=== PATIENT | female | born 1960 | race Two or more races ===

== ENCOUNTER 2021-09-25 10:16 | Inpatient (IN) | payer MEDICAID, OTHER ==
[~2021-09-25] VITALS: Ht 162.6 cm; Wt 83.1 kg
[2021-09-25] MEDS ORDERED: SODIUM CHLORIDE 0.9% 1,000 ML IV ONE (15:30)
[2021-09-25] MEDS ORDERED: SODIUM CHLORIDE 0.9% 1,000 ML IVB ONE (15:30)
[2021-09-25] MEDS ORDERED: ASPirin 81 mg TAB PO ONE (15:30)
[2021-09-25 16:33] LABS: Basophils # (auto) 0 10 ^3/uL (0-0.2); Basophils % (auto) 0.3 % (0.0-2.0); Eosinophils # (auto) 0 10 ^3/uL (0-0.8); Hematocrit 45.3 % (36.0-46.0); Hemoglobin 15.3 g/dL (12.2-16.2); Lymphocytes # (auto) 0.8 10 ^3/uL (0.4-5.4); Lymphocytes % (auto) 16.6 % (10.0-50.0); Mean Corpuscular Hemoglobin 28.5 pg (28.0-32.0); Mean Corpuscular Hgb Conc. 33.7 g/dL (32.0-36.0); Mean Corpuscular Volume 84.5 fL (80.0-100.0); Monocytes # (auto) 0.3 10 ^3/uL (0-1.3); Monocytes % (auto) 6.3 % (0.0-12.0); Neutrophils # (auto) 3.5 10 ^3/uL (1.6-8.6); Neutrophils % (auto) 76.8 % (37.0-80.0); Nucleated Red Blood Cells % 0.4 %; Red Blood Cells 5.36 10^6/uL (4.0-5.20); Red Cell Distribution Width 14.3 % (11.8-14.3); White Blood Cell 4.5 10^3/uL (4.4-10.8)
[2021-09-25 16:50] LABS: Albumin 3.4 g/dL (3.4-5.0); Calcium 8.9 mg/dL (8.5-10.1); Magnesium 3.2 mg/dL (1.6-2.6); Potassium 3.6 mmol/L (3.5-5.1)
[2021-09-25 16:56] LABS: BUN/Creatinine Ratio 17.5; Bilirubin, Total 0.9 mg/dL (0.2-1.0); Total Protein 8.4 g/dL (6.4-8.2)
[2021-09-25 17:30] LABS: INR 0.97 (0.9-1.15); Partial Thromboplastin Time 28.9 sec (23.6-33.0)
[2021-09-25] MEDS ORDERED: FUROSEMIDE 40 MG/4 ML VIAL IV ONE (17:45)
[2021-09-25] MEDS ORDERED: SPIRONOLACTONE 25 MG TAB PO ONE (17:45)
[2021-09-25] MEDS ORDERED: IOHEXOL 350 MG/ML 100ML IJ ONE (18:01)
[2021-09-25] MEDS ORDERED: AZITHROMYCIN 500MG/ 250ML 250 ML IV ONE (18:45)
[2021-09-25] MEDS ORDERED: ASCORBIC ACID 500 MG TAB PO ONE (18:45)
[2021-09-25] MEDS ORDERED: CHOLECALCIFEROL (VITD3) 2,000 UNIT CAP/TAB PO ONE (18:45)
[2021-09-25] MEDS ORDERED: ZINC SULFATE 220mg CAP or TAB PO ONE (18:45)
[2021-09-25] MEDS ORDERED: DexAMETHasone SOD PHOS 10MG/1ML VIAL INJ IV ONE (18:45)
[2021-09-25] MEDS ORDERED: cefTRIAXone 1GM/50ML D5W 50 ML IV ONE (18:45)
[2021-09-26] MEDS ORDERED: NITROGLYCERIN 0.4 MG SL TAB SL PRN (01:00)
[2021-09-26] MEDS ORDERED: ONDANSETRON HCL 4 MG/2 ML VIAL IV PRN (01:00)
[2021-09-26] MEDS ORDERED: MORPHINE SULFATE INJECTION 2 MG/ML SYRG IV PRN (01:00)
[2021-09-26] MEDS: ALBUTEROL SULF HFA 90MCG INH 200DOSE IN SCH ×3 (06:00→22:00)
[2021-09-26 07:14] LABS: Albumin 3.3 g/dL (3.4-5.0); BUN/Creatinine Ratio 11.6; Calcium 8.7 mg/dL (8.5-10.1); Potassium 3.2 mmol/L (3.5-5.1)
[2021-09-26 07:16] LABS: Bilirubin, Total 0.9 mg/dL (0.2-1.0); Total Protein 7.9 g/dL (6.4-8.2)
[2021-09-26 07:26] LABS: Basophils # (auto) 0 10 ^3/uL (0-0.2); Basophils % (auto) 0.2 % (0.0-2.0); Eosinophils # (auto) 0 10 ^3/uL (0-0.8); Hemoglobin 14.3 g/dL (12.2-16.2); Lymphocytes # (auto) 1.1 10 ^3/uL (0.4-5.4); Lymphocytes % (auto) 28.2 % (10.0-50.0); Mean Corpuscular Hgb Conc. 33.2 g/dL (32.0-36.0); Mean Corpuscular Volume 84.3 fL (80.0-100.0); Monocytes # (auto) 0.2 10 ^3/uL (0-1.3); Monocytes % (auto) 6.2 % (0.0-12.0); Neutrophils # (auto) 2.4 10 ^3/uL (1.6-8.6); Neutrophils % (auto) 65.4 % (37.0-80.0); Nucleated Red Blood Cells % 0.3 %; Red Cell Distribution Width 14.1 % (11.8-14.3); White Blood Cell 3.7 10^3/uL (4.4-10.8)
[2021-09-26] MEDS: DexAMETHasone SOD PHOS 10MG/1ML VIAL INJ IV SCH (10:03)
[2021-09-26] MEDS: AZITHROMYCIN 500MG/ 250ML 250 ML IV SCH (10:03)
[2021-09-26] MEDS: ZINC SULFATE 220mg CAP or TAB PO SCH (10:04)
[2021-09-26] MEDS: ASCORBIC ACID 500 MG TAB PO SCH ×2 (10:04→21:41)
[2021-09-26] MEDS: CHOLECALCIFEROL (VITD3) 2,000 UNIT CAP/TAB PO SCH (10:04)
[2021-09-26] MEDS: ENOXAPARIN SOD 40 MG/0.4 ML SYRINGE SC SCH (10:04)
[2021-09-26 16:00] VITALS: BP 157/94
[2021-09-26 17:29] VITALS: BP 142/93
[2021-09-26] MEDS ORDERED: POTASSIUM CHL 20 Meq TABLET PO ONE (21:30)
[2021-09-26] MEDS: FAMOTIDINE 20 MG TAB PO SCH (21:42)
[2021-09-26 22:00] VITALS: BP 149/87
[2021-09-27 05:00] VITALS: BP 127/67
[2021-09-27] MEDS: ALBUTEROL SULF HFA 90MCG INH 200DOSE IN SCH ×3 (06:00→21:40)
[2021-09-27 09:00] VITALS: BP 132/65
[2021-09-27] MEDS: DexAMETHasone SOD PHOS 10MG/1ML VIAL INJ IV SCH (09:59)
[2021-09-27] MEDS: AZITHROMYCIN 500MG/ 250ML 250 ML IV SCH (09:59)
[2021-09-27] MEDS: ENOXAPARIN SOD 40 MG/0.4 ML SYRINGE SC SCH (09:59)
[2021-09-27] MEDS: ZINC SULFATE 220mg CAP or TAB PO SCH (10:00)
[2021-09-27] MEDS: CHOLECALCIFEROL (VITD3) 2,000 UNIT CAP/TAB PO SCH (10:00)
[2021-09-27] MEDS: ASCORBIC ACID 500 MG TAB PO SCH ×2 (10:00→22:04)
[2021-09-27] MEDS: FAMOTIDINE 20 MG TAB PO SCH ×2 (10:00→22:03)
[2021-09-27 10:03] LABS: Potassium 3.7 mmol/L (3.5-5.1)
[2021-09-27 10:08] LABS: BUN/Creatinine Ratio 23.9; Magnesium 3.1 mg/dL (1.6-2.6)
[2021-09-27 13:00] VITALS: BP 142/81
[2021-09-27] MEDS ORDERED: REMDESIVIR PER PHARMACY 0 ML IV SCH (16:00)
[2021-09-27 17:00] VITALS: BP 134/59
[2021-09-27] MEDS ORDERED: REMDESIVIR 200 MG in NS 210ml LOADING DOSE ADULT IV ONE (18:30)
[2021-09-27 22:00] VITALS: BP 141/76
[2021-09-28 05:00] VITALS: BP 148/67
[2021-09-28] MEDS: ALBUTEROL SULF HFA 90MCG INH 200DOSE IN SCH ×3 (07:50→21:28)
[2021-09-28 08:55] LABS: Potassium 3.7 mmol/L (3.5-5.1)
[2021-09-28 09:00] VITALS: BP 141/87
[2021-09-28 09:30] LABS: Albumin 2.9 g/dL (3.4-5.0); BUN/Creatinine Ratio 30.5; Bilirubin, Total 0.7 mg/dL (0.2-1.0); Calcium 8.3 mg/dL (8.5-10.1); Total Protein 6.6 g/dL (6.4-8.2)
[2021-09-28] MEDS: ENOXAPARIN SOD 40 MG/0.4 ML SYRINGE SC SCH (10:45)
[2021-09-28] MEDS: ASCORBIC ACID 500 MG TAB PO SCH ×2 (10:46→21:38)
[2021-09-28] MEDS: ZINC SULFATE 220mg CAP or TAB PO SCH (10:46)
[2021-09-28] MEDS: CHOLECALCIFEROL (VITD3) 2,000 UNIT CAP/TAB PO SCH (10:46)
[2021-09-28] MEDS: DexAMETHasone SOD PHOS 10MG/1ML VIAL INJ IV SCH (10:46)
[2021-09-28] MEDS: FAMOTIDINE 20 MG TAB PO SCH ×2 (10:46→21:38)
[2021-09-28] MEDS: AZITHROMYCIN 500MG/ 250ML 250 ML IV SCH (10:47)
[2021-09-28 13:00] VITALS: BP 149/92
[2021-09-28] MEDS: REMDESIVIR 100mg 100 MG in SODIUM CHL 0.9% 230 ML IV SCH (15:09)
[2021-09-28 17:00] VITALS: BP 149/91
[2021-09-28 22:00] VITALS: BP 131/85
[2021-09-29 05:00] VITALS: BP 146/77
[2021-09-29] MEDS: ALBUTEROL SULF HFA 90MCG INH 200DOSE IN SCH ×3 (07:00→21:21)
[2021-09-29 07:58] LABS: Potassium 3.9 mmol/L (3.5-5.1)
[2021-09-29 08:03] LABS: Albumin 2.8 g/dL (3.4-5.0); BUN/Creatinine Ratio 26.3; Calcium 8.8 mg/dL (8.5-10.1)
[2021-09-29 08:06] LABS: Bilirubin, Total 0.7 mg/dL (0.2-1.0); Total Protein 6.8 g/dL (6.4-8.2)
[2021-09-29 09:00] VITALS: BP 141/78
[2021-09-29] MEDS: DexAMETHasone SOD PHOS 10MG/1ML VIAL INJ IV SCH (09:24)
[2021-09-29] MEDS: AZITHROMYCIN 500MG/ 250ML 250 ML IV SCH (09:24)
[2021-09-29] MEDS: ASCORBIC ACID 500 MG TAB PO SCH ×2 (09:28→21:00)
[2021-09-29] MEDS: FAMOTIDINE 20 MG TAB PO SCH ×2 (09:28→21:00)
[2021-09-29] MEDS: ZINC SULFATE 220mg CAP or TAB PO SCH (09:28)
[2021-09-29] MEDS: CHOLECALCIFEROL (VITD3) 2,000 UNIT CAP/TAB PO SCH (09:28)
[2021-09-29] MEDS: ENOXAPARIN SOD 40 MG/0.4 ML SYRINGE SC SCH (09:28)
[2021-09-29 13:00] VITALS: BP 142/88
[2021-09-29] MEDS: REMDESIVIR 100mg 100 MG in SODIUM CHL 0.9% 230 ML IV SCH (15:41)
[2021-09-29 17:00] VITALS: BP 131/71
[2021-09-29 22:00] VITALS: BP 140/64
[2021-09-30 05:00] VITALS: BP 146/81
[2021-09-30] MEDS: ALBUTEROL SULF HFA 90MCG INH 200DOSE IN SCH (06:00)
[2021-09-30 08:09] LABS: Calcium 8.7 mg/dL (8.5-10.1); Potassium 3.9 mmol/L (3.5-5.1)
[2021-09-30 08:12] LABS: Albumin 2.8 g/dL (3.4-5.0); BUN/Creatinine Ratio 28.8
[2021-09-30 08:15] LABS: Bilirubin, Total 0.7 mg/dL (0.2-1.0)
[2021-09-30 09:00] VITALS: BP 108/51
[2021-09-30] MEDS: ZINC SULFATE 220mg CAP or TAB PO SCH (09:14)
[2021-09-30] MEDS: ASCORBIC ACID 500 MG TAB PO SCH (09:14)
[2021-09-30] MEDS: CHOLECALCIFEROL (VITD3) 2,000 UNIT CAP/TAB PO SCH (09:15)
[2021-09-30] MEDS: FAMOTIDINE 20 MG TAB PO SCH (09:15)
[2021-09-30] MEDS: AZITHROMYCIN 500MG/ 250ML 250 ML IV SCH (09:15)
[2021-09-30] MEDS: DexAMETHasone SOD PHOS 10MG/1ML VIAL INJ IV SCH (09:16)
[2021-09-30] MEDS: ENOXAPARIN SOD 40 MG/0.4 ML SYRINGE SC SCH (09:17)
[2021-09-30] MEDS ORDERED: DOXY-286 PO (09:25)
[2021-09-30] MEDS ORDERED: FAMO-161 PO (09:25)
[2021-09-30] MEDS ORDERED: DEX4T PO (09:25)
[2021-09-30] MEDS ORDERED: ALBUAER3 IN (09:25)
[2021-09-30 13:00] VITALS: BP 137/71
[2021-09-30 14:41] VITALS: BP 137/71
[2021-09-30] MEDS: REMDESIVIR 100mg 100 MG in SODIUM CHL 0.9% 230 ML IV SCH (15:44)
== END 2021-09-30 18:51 | disposition home health service (06) | DRG 137 ==
LOC: ER 10:16 → TELE 09-26 00:56 → TELE-WESTW 09-26 15:40
PROVIDERS: ADMIT Hospitalist; ATTEND Hospitalist
PROC: XW033E5 Introduction of Remdesivir Anti-infective into Peripheral Vein, Percutaneous Approach, New Technology Group 5 (ICD-10-PCS; principal; 2021-09-27)
DX: U07.1 COVID-19 (principal); J12.82 Pneumonia due to coronavirus disease 2019; K76.0 Fatty (change of) liver, not elsewhere classified; J98.11 Atelectasis; Z86.16 Personal history of COVID-19; R09.89 Other specified symptoms and signs involving the circulatory and respiratory systems; J45.909 Unspecified asthma, uncomplicated; Z90.49 Acquired absence of other specified parts of digestive tract; Z82.49 Family history of ischemic heart disease and other diseases of the circulatory system
CPT/HCPCS: 36415; 71045; 71275; 80048; 80053; 83605; 83735; 83880; 84443; 84484; 85025; 85379; 85610; 85730; 87040; 87426; 93005; 94640; 96361; 96365; 96368; G0378; J0696; J1100